=== PATIENT | female | born 2000 | race Caucasian/White ===

== ENCOUNTER 2019-06-17 11:20 | Outpatient (CLI) | payer BC ==
--- NOTE | 2019-06-17 13:39 | RAD ---
RIGHT CLAVICLE 2 VIEWS: INDICATION: Pain within the right clavicle. COMPARISON: None. FINDINGS: No acute fracture or subluxation is evident. Visualized right lung is clear. IMPRESSION: No acute osseous abnormality. POS: [facility]
--- NOTE | 2019-06-17 13:40 | RAD ---
RIGHT SHOULDER 3 VIEWS: HISTORY: Arthralgia of the right AC joint, trauma 1 month ago. FINDINGS/IMPRESSION: No fracture, dislocation, or other acute process. POS: [facility]
== END 2019-06-17 11:21 | disposition home or self-care (01) ==
LOC: BICRAD 11:20
PROVIDERS: ATTEND Physician Assistant
DX: M25.511 Pain in right shoulder (principal); M89.8X1 Other specified disorders of bone, shoulder